=== PATIENT | male | born 1970 | race Caucasian/White ===

== ENCOUNTER 2018-07-20 17:36 | Emergency (ER) | payer SELFPAY ==
[~2018-07-20] VITALS: Ht 172.7 cm; Wt 75.0 kg
[2018-07-20 17:45] VITALS: BP 126/75
== END 2018-07-20 18:30 | disposition left against medical advice (07) ==
LOC: ER 17:59
DX: R56.9 Unspecified convulsions (principal); V47.5XXA Car driver injured in collision with fixed or stationary object in traffic accident, initial encounter; Y93.89 Activity, other specified; Y92.89 Other specified places as the place of occurrence of the external cause; F10.21 Alcohol dependence, in remission
CPT/HCPCS: 99283